=== PATIENT | male | born 1960 | race Caucasian/White ===

== ENCOUNTER 2017-03-22 16:14 | Emergency (ER) | payer OTHER ==
--- NOTE | 2017-03-22 18:00 | DIAGNOSTIC IMAGING REPORT ---
PROCEDURE: XR ANKLE 3 OR 4 VIEWS - LEFT INDICATION: PAIN TECHNIQUE: Four views. COMPARISON: None. FINDINGS: No fracture or dislocation. Normal ankle mortise. Mild degenerative changes of the tibiotalar joint. Soft tissue swelling laterally. IMPRESSION: 1. Soft tissue swelling laterally.
--- NOTE | 2017-03-22 18:08 | DIAGNOSTIC IMAGING REPORT ---
PROCEDURE: US VENOUS - LEFT EXT INDICATION: Left lower extremity edema. TECHNIQUE: Duplex sonography of the deep venous system in the left lower extremity was performed. Compression and augmentation techniques were used. COMPARISON: None. FINDINGS: Normal compression of the greater saphenous, common femoral, superficial femoral, popliteal, peroneal, and posterior tibial veins. Normal augmentation. There is no evidence of superficial or deep venous thrombosis. IMPRESSION: 1. Negative venous ultrasound of the left lower extremity.
--- NOTE | 2017-03-22 19:22 | ED NURSING NOTES ---
Clinical Report - Nurses [address] [place] [address] 03/22/2017 16:18 [id number] TRI[facility] Triage time 16:24. Acuity: LEVEL 3. Chief Complaint: LEFT LOWER EXTREMITY PAIN and SWELLING. Alert. MELISSA COMA SCORE: [place] Coma Scale: 15- eyes open spontaneously (4); best verbal response- oriented x 4 (5); best motor response- obeys commands (6). --16:34 Aileen Holly R.N. 16:24 03/22/17. BP: 131/83. HR: 86. RR: 18. O2 saturation: 94%. Temp: 97.7 F (oral). Pain level now: 710. --16:34 Aileen Holly R.N. Weight: 136 kg stated. Height/Length: 70 inches Per Patient. BMI: 43. --16:27 Aileen Holly R.N. Medications Fenofibrate Oral 134 mg, daily. --16:26 Aileen Holly R.N. Allopurinol Oral (Tablet 300 mg), daily. --16:26 Aileen Holly R.N. Atorvastatin Calcium Oral 20 mg, daily. --16:26 Aileen Holly R.N. Medication/allergy information source: the patient. --16:34 Aileen Holly R.N. Allergies No Known Drug Allergy. --16:26 Aileen Holly R.N. History Arrived by private vehicle. Historian: patient. Accompanied by family. Primary physician ([facility]). No injury occurred. This occurred (pain March 09, today swellingbruising). He has had trouble walking. SOCIAL HX: Never smoker. Occasional alcohol use. No drug use. FALL RISK ASSESSMENT: Fall risk assessment completed. No fall risk identified. FUNCTIONAL ASSESSMENT: Functional assessment: no impairments noted. LEARNING NEEDS ASSESSMENT: The learning needs assessment revealed no barriers. --16:34 Aileen Holly R.N. PROBLEMS: Hypercholesterolemia. Gout. --16:28 Aileen Holly R.N. ADDITIONAL SURGERIES: Shoulder Surgery. Tonsillectomy & Adenoidectomy. --16:28 Aileen Holly R.N. Assessment GENERAL / NEURO / PSYCH: Alert. Oriented X 4. Appears in no acute distress. Patient appears calm and cooperative. RESPIRATORY: Respirations not labored. SKIN: Skin is warm and dry. --16:34 Aileen Holly R.N. Interventions ID band on patient. To treatment room. --16:34 Aileen Holly R.N. PHYSICAL ASSESSMENT 16:38 03/22/17. To room via wheelchair. GENERAL / NEURO / PSYCH: Oriented X 4. Alert. Appears in no acute distress. EXTREMITIES: Left ankle: tenderness and swelling. Left foot: tenderness and swelling. SKIN: Skin is warm and dry. --16:38 Aileen Holly R.N. NURSING PROGRESS NOTES 16:38 03/22/17. Call light placed in reach. Side rails up x 1. Bed placed in lowest position. Brakes of bed on. --16:38 Aileen Holly R.N. 17:30 US done in room. The patient is calm. Overall patient status is the same- he states feels the same. GENERAL / NEURO / PSYCH: Alert. Oriented X 4. RESPIRATORY: No respiratory distress. SKIN: Skin is warm and dry. --19:14 Aileen Holly R.N. 19:15 03/22/17. The patient is calm. Overall patient status is the same- he states feels the same. GENERAL / NEURO / PSYCH: Alert. Oriented X 4. RESPIRATORY: No respiratory distress. SKIN: Skin is warm and dry. --19:15 Aileen Holly R.N. 19:14 03/22/17. BP: 133/74. HR: 78. RR: 18. O2 saturation: 98%. --19:15 Aileen Holly R.N. 19:15 03/22/17. Patient waiting for disposition. --19:15 Aileen Holly R.N. Air lower extremity splint applied to left ankle by solo (1945). --20:03 Pippa Enciso. Locked/Released at 03/23/2017 0:40 by Mary Shah R.N.
--- NOTE | 2017-03-22 19:22 | ED NURSING NOTES ---
Clinical Report - Nurses [address] [place] [address] 03/22/2017 16:18 [id number] Triage time 16:24. Acuity: LEVEL 3. Chief Complaint: LEFT LOWER EXTREMITY PAIN and SWELLING. Alert. MELISSA COMA SCORE: [place] Coma Scale: 15- eyes open spontaneously (4); best verbal response- oriented x 4 (5); best motor response- obeys commands (6). --16:34 Aileen Holly R.N. 16:24 03/22/17. BP: 131/83. HR: 86. RR: 18. O2 saturation: 94%. Temp: 97.7 F (oral). Pain level now: 710. --16:34 Aileen Holly R.N. Weight: 136 kg stated. Height/Length: 70 inches Per Patient. BMI: 43. --16:27 Aileen Holly R.N. Medications Fenofibrate Oral 134 mg, daily. --16:26 Aileen Holly R.N. Allopurinol Oral (Tablet 300 mg), daily. --16:26 Aileen Holly R.N. Atorvastatin Calcium Oral 20 mg, daily. --16:26 Aileen Holly R.N. Medication/allergy information source: the patient. --16:34 Aileen Holly R.N. Allergies No Known Drug Allergy. --16:26 Aileen Holly R.N. History Arrived by private vehicle. Historian: patient. Accompanied by family. Primary physician ([facility]). No injury occurred. This occurred (pain March 09, today swellingbruising). He has had trouble walking. SOCIAL HX: Never smoker. Occasional alcohol use. No drug use. FALL RISK ASSESSMENT: Fall risk assessment completed. No fall risk identified. FUNCTIONAL ASSESSMENT: Functional assessment: no impairments noted. LEARNING NEEDS ASSESSMENT: The learning needs assessment revealed no barriers. --16:34 Aileen Holly R.N. PROBLEMS: Hypercholesterolemia. Gout. --16:28 Aileen Holly R.N. ADDITIONAL SURGERIES: Shoulder Surgery. Tonsillectomy & Adenoidectomy. --16:28 Aileen Holly R.N. Assessment GENERAL / NEURO / PSYCH: Alert. Oriented X 4. Appears in no acute distress. Patient appears calm and cooperative. RESPIRATORY: Respirations not labored. SKIN: Skin is warm and dry. --16:34 Aileen Holly R.N. Interventions ID band on patient. To treatment room. --16:34 Aileen Holly R.N. PHYSICAL ASSESSMENT 16:38 03/22/17. To room via wheelchair. GENERAL / NEURO / PSYCH: Oriented X 4. Alert. Appears in no acute distress. EXTREMITIES: Left ankle: tenderness and swelling. Left foot: tenderness and swelling. SKIN: Skin is warm and dry. --16:38 Aileen Holly R.N. NURSING PROGRESS NOTES 16:38 03/22/17. Call light placed in reach. Side rails up x 1. Bed placed in lowest position. Brakes of bed on. --16:38 Aileen Holly R.N. 17:30 US done in room. The patient is calm. Overall patient status is the same- he states feels the same. GENERAL / NEURO / PSYCH: Alert. Oriented X 4. RESPIRATORY: No respiratory distress. SKIN: Skin is warm and dry. --19:14 Aileen Holly R.N. 19:15 03/22/17. The patient is calm. Overall patient status is the same- he states feels the same. GENERAL / NEURO / PSYCH: Alert. Oriented X 4. RESPIRATORY: No respiratory distress. SKIN: Skin is warm and dry. --19:15 Aileen Holly R.N. 19:14 03/22/17. BP: 133/74. HR: 78. RR: 18. O2 saturation: 98%. --19:15 Aileen Holly R.N. 19:15 03/22/17. Patient waiting for disposition. --19:15 Aileen Holly R.N. Air lower extremity splint applied to left ankle by solo (1945). --20:03 Pippa Enciso. Locked/Released at 03/23/2017 0:40 by Mary Shah R.N.
--- NOTE | 2017-03-22 19:22 | ED CLINICAL REPORT ---
Clinical Report - Physicians/Mid Levels [facility] [address] [place] [address] 03/22/2017 16:18 [id number] Time Seen: 16:26. Arrived- By private vehicle. Historian- patient. Note: Patient has a primary care physician; PCP referred patient for evaluation. HISTORY OF PRESENT ILLNESS Chief Complaint: LOWER EXTREMITY PAIN and SWELLING. Modifying factors- worsened by walking. Relieved by remaining still. Severity is described as being moderate. The quality is noted to be "pain". No radiation. This started about 2 weeks ago and is still present. It was gradual in onset and has been waxing/waning. Symptoms located in the area of the left leg and left ankle. The patient has had swelling, but not had redness. He has had difficulty walking. No bladder dysfunction, bowel dysfunction, sensory loss or motor loss. ( States most pain "over the bone" (lateral malleous). Has been driving in his [employer] today). Patient notes the possibility of an injury. Mechanism of injury- (unknown mechanism). Similar symptoms previously: None. Recent medical care: Not recently seen/assessed. REVIEW OF SYSTEMS No cough, chest pain, difficulty breathing, fever or enlarged lymph nodes. No neck pain, back pain, headache, sore throat or abdominal pain. No vomiting, diarrhea, black stools, difficulty with urination or bloody stools. All systems otherwise negative, except as recorded above. PAST HISTORY See nurses notes. ( PROBLEMS: Hyperlipidemia. Gout. SURGERIES: Shoulder Surgery. Tonsillectomy & Adenoidectomy). Medications: Atorvastatin Calcium Oral 20 mg, daily. Allopurinol Oral (Tablet 300 mg), daily. Fenofibrate Oral 134 mg, daily. Allergies: No Known Drug Allergy. SOCIAL HISTORY Never smoker. Occasional alcohol use. No drug use. Residence: [facility]. ADDITIONAL NOTES The nursing notes have been reviewed. PHYSICAL EXAM Vital Signs: 03/22/2017 16:24 BP: 131/83. HR: 86. RR: 18. O2 saturation: 94%. Temp: 97.7 F. Pain level now: 7/10. Appearance: Alert. Oriented X3. Patient in mild distress. Eyes: Eyes normal inspection. No pale conjunctivae or scleral icterus. ENT: Pharynx normal. The mucous membranes are not dry. No pharyngeal erythema or tonsillar exudate. Neck: Normal inspection. Neck supple. CVS: Normal heart rate and rhythm. Heart sounds normal. Respiratory: No respiratory distress. Breath sounds normal. Abdomen: Soft and nontender. Back: Normal inspection. No tenderness. ROM normal. Skin: Skin intact. No cyanosis. Skin warm and dry. Normal skin color. Normal skin turgor. Skin not cool on palpation. No pallor or diaphoresis. Extremities: Left leg: mild tenderness and swelling located in the anterior, posterior, medial and lateral aspect of upper, mid and lower leg. (most tenderness is over the lateral malleolus). No erythema, laceration, abrasion or deformity. Left ankle: moderate tenderness and swelling localized to the lateral ligaments and malleolus. Neurovascular intact distally. No ligamentous laxity present. No erythema, laceration, abrasion, ecchymosis or puncture wound. No deformity. No limitation in ROM. Extremities otherwise negative. Neuro: Oriented X 3. No motor deficit. LABS, X-RAYS, AND EKG Lt Ankle X-ray: No fracture. Normal alignment. No bony lesion, air in the soft tissue or foreign body. Soft tissues normal. Joint spaces normal. Views: AP, lateral, mortise and oblique. Technique: good. The X-rays were interpreted contemporaneously by me. Lower Extremity Sonography: Negative exam. Indication for study: extremity pain and swelling; suspected deep venous thrombosis in the left lower extremity. The study was discussed with the radiologist (via PACS note). Laboratory Tests: CBC w Diff: (SEFERINO: 03/22/2017 16:54) ( MsgRcvd 03/22/2017 17:19) Final results Test Result Flag Units (Reference) WHITE BLOOD COUNT 9.9 K/uL (4.5-11.5) RED BLOOD COUNT 4.86 M/uL (4.50-5.90) HEMOGLOBIN 13.9 gm/dL (13.5-17.5) HEMATOCRIT 41.0 % (41.0-53.0) MEAN CELL VOLUME 84 fL (80-100) MEAN CORPUSCULAR HGB 29 pg (26-34) MEAN CORPUSCULAR HGB CONC 34 g/dL (31-37) RED CELL DISTRIBUTION WIDTH 13.8 % (11.6-14.8) PLATELET COUNT 264 K/uL (150-400) NEUTROPHIL % 69.2 % (50-75) LYMPH % 19.2 L % (25-40) MONO % 10.4 % (3-14) EOSINOPHIL % 0.9 % (0-4) BASOPHIL % 0.3 % (0-2) [id number]: (SEFERINO: 03/22/2017 16:54) ( MsgRcvd 03/22/2017 18:18) Final results Test Result Flag Units (Reference) D-DIMER QUANTITATIVE 0.28 ug/mLFEU (0.27-0.52) The primary value of this quantitative assay relates toits negative predictive value (i.e. exclusion) of pulmonaryembolism/deep vein thrombosis/DIC.Elevated levels of d-dimer may also occur with:, age, cancer, inflammation, liver disease,post-op, infection, hematoma, coronary disease, peripheralarteriopathy, bleeding disorders and thrombolytic treatment.Results should be correlated with other clinical andradiological data.Testing Methodology: Latex Immunoassay BMP: (SEFERINO: 03/22/2017 16:54) ( MsgRcvd 03/22/2017 17:11) Final results Test Result Flag Units (Reference) GLUCOSE 93 mg/dL (70-110) BUN 22 H mg/dL (7-18) CREATININE 1.3 mg/dL (0.6-1.3) Estimated GFR >60 mL/min Estimated GFR- >60 mL/min Note: Persistent reduction over 3 months in eGFR<60 mL/min/1.73 m2 defines CKD. Patients with eGFR values>=60 mL/min/1.73 m2 may also have CKD if evidence ofpersistent proteinuria. Additional information may be foundat www.kidney.org. SODIUM 144 mmol/L (136-145) POTASSIUM 3.9 mmol/L (3.5-5.1) CHLORIDE 107 mmol/L (98-107) CARBON DIOXIDE 27 mmol/L (21-32) CALCIUM 9.1 mg/dL (8.5-10.1) Uric Acid: (SEFERINO: 03/22/2017 16:54) ( MsgRcvd 03/22/2017 17:14) Final results Test Result Flag Units (Reference) URIC ACID 6.3 mg/dL (2.6-7.2) . Pulse Oximetry: 03/22/2017 19:14 O2 saturation: 98%. (FIO2 - room air). Interpretation: normal. PROGRESS AND PROCEDURES PROCEDURES (JOSE ANGEL wrap and crutches given). Course of Care: 18:54 03/22/17. Still awaiting US results 19:20 03/22/17. US is neg 03/22/2017 19:14 BP: 133/74. HR: 78. RR: 18. O2 saturation: 98%. Patient/family counseled. Disposition: Discharged. Condition: stable and improved. CLINICAL IMPRESSION Sprain of the calcaneofibular and talofibular ligament of the left ankle. INSTRUCTIONS Apply ice. Use crutches until released. Elevate affected areas above chest level. Do not work for two days. Rest. Warnings: Further evaluation is necessary in order to recheck abnormal lab, obtain test results and conduct further tests. It is very important to follow up with a physician. GENERAL WARNINGS: Return or contact your physician immediately if your condition worsens or changes unexpectedly, if not improving as expected, or if other problems arise. Your Current Medications: CONTINUE TAKING THE FOLLOWING MEDICATIONS: Allopurinol Oral : Tablet 300 mg, daily. Atorvastatin Calcium Oral : 20 mg daily. Fenofibrate Oral : 134 mg daily. OTC Medications: Acetaminophen (available over the counter): take according to label instructions. Motrin (available over the counter): take according to label instructions. Follow-up: Follow up with your doctor in about two days. (Electronically signed by José Miguel Manriquez DO 03/22/2017 21:42)
--- NOTE | 2017-03-22 19:22 | ED ORDER SUMMARY ---
..... Patient: JAZMIN FATIMA OrderSheet [facility] VisitID: [id number] [address] [place] [address] 56y, M Registration Date/Time: 03/22/2017 ORDER SHEET Weight: 136.0 kg (stated) Allergies: No Known Drug Allergy GENERAL ORDERS: US Venous Left Urgent (16:34 03/22/2017 PHneXG Sciencesson DO) (Ack 16:43 LNations ER Tech1) (17:43 Pierre R.N.) CBC w Diff Urgent (16:34 03/22/2017 PHneXG Sciencesson DO) (Ack 16:43 LNations ER Tech1) (17:42 Pierre R.N.) Uric Acid Urgent (16:34 03/22/2017 [facility] (Ack 16:43 LNations ER Tech1) (17:42 Pierre R.N.) Ankle 3 or 4V Left Urgent (16:41 03/22/2017 [facility] Hoops [facility]) (Ack 16:43 LNations ER Tech1) (16:51 Pierre R.N.) BMP Urgent (16:44 03/22/2017 PHneXG Sciencesson DO) (Ack 16:44 LNations ER Tech1) (17:42 Pierre R.N.) D-Dimer Urgent (17:38 03/22/2017 [facility]) (17:42 Pierre R.N.) Splint (LE) (Left) (Air Splint) (19:21 03/22/2017 [facility] DO) (20:05 CBradburn R.N.) Crutches (19:21 03/22/2017 [facility]) (20:05 CBradburn R.N.) MEDICATION ORDERS: IV FLUIDS: ORDER SHEET NOTES: [Electronically signed by José Miguel Manriquez DO (21:42 03/22/2017)] [Electronically signed by Mary Shah R.N. (00:40 03/23/2017)] [Electronically locked/signed by Mary Shah R.N. (00:40 03/23/2017)]
--- NOTE | 2017-03-22 19:22 | ED ORDER SUMMARY ---
..... Patient: JAZMIN FATIMA OrderSheet [facility] VisitID: [id number] [address] [place] [address] 56y, M Registration Date/Time: 03/22/2017 ORDER SHEET Weight: 136.0 kg (stated) Allergies: No Known Drug Allergy GENERAL ORDERS: US Venous Left Urgent (16:34 03/22/2017 PHsdRevelationson DO) (Ack 16:43 LNations ER Tech1) (17:43 Pierre R.N.) CBC w Diff Urgent (16:34 03/22/2017 PHsdRevelationson DO) (Ack 16:43 LNations ER Tech1) (17:42 Pierre R.N.) Uric Acid Urgent (16:34 03/22/2017 [facility] (Ack 16:43 LNations ER Tech1) (17:42 Pierre R.N.) Ankle 3 or 4V Left Urgent (16:41 03/22/2017 [facility] (Ack 16:43 LNations ER Tech1) (16:51 Pierre R.N.) BMP Urgent (16:44 03/22/2017 [facility]sd[facility]velations[facility] DO) (Ack 16:44 LNations ER Tech1) (17:42 Pierre R.N.) D-Dimer Urgent (17:38 03/22/2017 [facility]) (17:42 Pierre R.N.) Splint (LE) (Left) (Air Splint) (19:21 03/22/2017 [facility] DO) (20:05 CBradburn R.N.) Crutches (19:21 03/22/2017 [facility]) (20:05 CBradburn R.N.) MEDICATION ORDERS: IV FLUIDS: ORDER SHEET NOTES: [Electronically signed by José Miguel Manriqeuz DO (21:42 03/22/2017)] [Electronically signed by Mary Shah R.N. (00:40 03/23/2017)] [Electronically locked/signed by Mary Shah R.N. (00:40 03/23/2017)]
--- NOTE | 2017-03-23 00:40 | ED MED RECONCILIATION SUMMARY ---
Patient: JAZMIN FATIMA Medication Reconciliation Report [facility] VisitID: [id number] [address] [place] [address] 56y, M Registration Date/Time: 03/22/2017 Weight: 136.0 kg Height/Length: 70 in. BMI: 43.0 ALLERGIES: No Known Drug Allergy The patient's Home Medications are listed below: CONTINUE TAKING THE FOLLOWING MEDICATIONS: Allopurinol Oral (300 mg), daily Atorvastatin Calcium Oral 20 mg, daily Fenofibrate Oral 134 mg, daily The source(s) of the original Home Medication information: patient The following Medications were given to the patient in the Emergency Department: None. The following Medications were prescribed to the patient: Acetaminophen (available over the counter): take according to label instructions. -- José Miguel Manriquez DO Motrin (available over the counter): take according to label instructions. -- José Miguel Manriquez DO
--- NOTE | 2017-03-23 00:40 | ED MED RECONCILIATION SUMMARY ---
Patient: JAZMIN FATIMA Medication Reconciliation Report [facility] VisitID: [id number] [address] [place] [address] 56y, M Registration Date/Time: 03/22/2017 Weight: 136.0 kg Height/Length: 70 in. BMI: 43.0 ALLERGIES: No Known Drug Allergy The patient's Home Medications are listed below: CONTINUE TAKING THE FOLLOWING MEDICATIONS: Allopurinol Oral (300 mg), daily Atorvastatin Calcium Oral 20 mg, daily Fenofibrate Oral 134 mg, daily The source(s) of the original Home Medication information: patient The following Medications were given to the patient in the Emergency Department: None. The following Medications were prescribed to the patient: Acetaminophen (available over the counter): take according to label instructions. -- José Miguel Manriquez DO Motrin (available over the counter): take according to label instructions. -- José Miguel Manriquez DO
--- NOTE | 2017-03-23 00:40 | ED MAR SUMMARY ---
..... Medication Administration Record [facility] [address] [place] [address] Patient: JAZMIN FATIMA Visit ID: [id number] 56y, M Weight: 136.0 kg Height/Length: 70 in BMI: 43 ALLERGIES: No Known Drug Allergy
--- NOTE | 2017-03-23 00:40 | ED MAR SUMMARY ---
..... Medication Administration Record [facility] [address] [place] [address] Patient: JAZMIN FATIMA Visit ID: [id number] 56y, M Weight: 136.0 kg Height/Length: 70 in BMI: 43 ALLERGIES: No Known Drug Allergy
--- NOTE | 2017-03-23 00:40 | ED DISCHARGE INSTRUCTIONS ---
Patient: JAZMIN FATIMA General Instructions [facility] VisitID: [id number] [place] [address] 56y, M Registration Date/Time: 03/22/2017 Sprain of the calcaneofibular and talofibular ligament of the left ankle. INSTRUCTIONS Apply ice. Use crutches until released. Elevate affected areas above chest level. Do not work for two days. Rest. Warnings: Further evaluation is necessary in order to recheck abnormal lab, obtain test results and conduct further tests. It is very important to follow up with a physician. GENERAL WARNINGS: Return or contact your physician immediately if your condition worsens or changes unexpectedly, if not improving as expected, or if other problems arise. Your Current Medications: CONTINUE TAKING THE FOLLOWING MEDICATIONS: Allopurinol Oral : Tablet 300 mg, daily. Atorvastatin Calcium Oral : 20 mg daily. Fenofibrate Oral : 134 mg daily. OTC Medications: Acetaminophen (available over the counter): take according to label instructions. Motrin (available over the counter): take according to label instructions. Follow-up: Follow up with your doctor in about two days. ADDITIONAL INFORMATION Sprain, Ankle,With X-Ray A sprain is an injury to the ligaments or capsule that holds a joint together. There are no broken bones. Most sprains take from four to six weeks to heal. If the ligament is completely torn (severe sprain), it can take several months to recover. Mild to moderate sprains may be treated with an elastic wrap or an in-shoe splint to provide support and prevent re-injury. A mild sprain may not require any additional support. A severe sprain may require surgery to repair. Home care The following guidelines will help you care for your injury at home: Stay off the injured leg as much as possible until you can walk on it without pain. If you have a lot of pain with walking, crutches or a walker may be prescribed. (These can be rented or purchased at many pharmacies and surgical or orthopedic supply stores). Follow your doctor's advice regarding when to begin bearing weight on that leg. Keep your leg elevated to reduce pain and swelling. When sleeping, place a pillow under the injured leg. When sitting, support the injured leg so it is level with your waist. This is very important during the first 48 hours. Apply an ice pack (ice cubes in a plastic bag, wrapped in a towel) over the injured area for 20 minutes every 12 hours the first day. You can place the ice pack directly over the splint/cast. If you were given a boot, open it to apply the ice pack. Continue with ice packs 34 times a day for the next two days, then as needed for the relief of pain and swelling. You may use acetaminophen or ibuprofen to control pain, unless another pain medicine was prescribed. If you have chronic liver or kidney disease or ever had a stomach ulcer or GI bleeding, talk with your doctor before using these medicines. You may return to sports after healing, when you can run without pain. A sprained ankle is at risk for re-injury during the first six weeks. During that time, protect your ankle with an in-shoe splint that prevents tilting of your ankle from side to side. This is very important if you do active work or play sports during that time. Follow-up care Any X-rays you had today dont show any broken bones, breaks, or fractures. Sometimes fractures dont show up on the first X-ray. Bruises and sprains can sometimes hurt as much as a fracture. These injuries can take time to heal completely. If your symptoms dont improve or they get worse, talk with your doctor. You may need a repeat X-ray. When to seek medical care Get prompt medical attention if any of the following occur: The plaster cast or splint gets wet or soft The fiberglass cast or splint gets wet and does not dry for 24 hours Pain or swelling increases, or redness appears Toes become cold, blue, numb or tingly Re-injure your ankle Crutch Walking Crutch Adjustment Make sure the crutches you use are adjusted to fit you. When you stand, there should be room to fit 2-3 fingers between the top of the crutch and your armpit. Your elbow should be slightly bent when holding the hand vamp throater. Crutch Walking: Place the crutches forward 12" in front of and 6" to the side of your feet. Lean your weight forward as you push down on the handgrips. Your weight should be on your hands and yourstrong leg, not your armpits . Let your body swing through, landing on the strong leg. Advance the crutches forward again. The crutch and the injured leg should move together. Going Up Steps: ("Up with the good") With both crutches on the same step as your feet, push down on the handgrips. Balancing with very light pressure on the weak leg, let your hands support your weight as you raise your strong leg onto the next higher step. Transfer all your weight to your strong leg (still bent) as you move the crutches up to the next step alongside the strong leg. With your weight evenly balanced on the two crutches and your strong leg, straighten your strong knee as you raise the weak leg up to the next step. Going Down Steps: ("Down with the bad") With both crutches on the same step as your feet, push down on the handgrips. With your weight evenly balanced on the two crutches and your strong leg, bend your strong knee as you lower the weak leg down to the next step. Let your strong leg support you (still bent) as you move the crutches down alongside the weak leg. Transfer your weight to your hands, balancing with very light pressure on the weak leg as you lower your strong leg alongside your weak leg. Acetaminophen Oral tablet What is this medicine? ACETAMINOPHEN (a set a FELICITY charles fen) is a pain reliever. It is used to treat mild pain and fever. How should I use this medicine? Take this medicine by mouth with a glass of water. Follow the directions on the package or prescription label. Take your medicine at regular intervals. Do not take your medicine more often than directed. Talk to your public health administrator regarding the use of this medicine in children. While this drug may be prescribed for children as young as 6 years of age for selected conditions, precautions do apply. What side effects may I notice from receiving this medicine? Side effects that you should report to your doctor or health chronic care nurse as soon as possible: allergic reactions like skin rash, itching or hives, swelling of the face, lips, or tongue breathing problems fever or sore throat redness, blistering, peeling or loosening of the skin, including inside the mouth trouble passing urine or change in the amount of urine unusual bleeding or bruising unusually weak or tired yellowing of the eyes or skin Side effects that usually do not require medical attention (report to your doctor or health chronic care nurse if they continue or are bothersome): headache nausea, stomach upset What may interact with this medicine? alcohol imatinib isoniazid other medicines with acetaminophen What if I miss a dose? If you miss a dose, take it as soon as you can. If it is almost time for your next dose, take only that dose. Do not take double or extra doses. Where should I keep my medicine? Keep out of reach of children. Store at room temperature between 20 and 25 degrees C (68 and 77 degrees F). Protect from moisture and heat. Throw away any unused medicine after the expiration date. What should I tell my health care provider before I take this medicine? They need to know if you have any of these conditions: if you frequently drink alcohol containing drinks liver disease an unusual or allergic reaction to acetaminophen, other medicines, foods, dyes or preservatives or trying to get breast-feeding What should I watch for while using this medicine? Tell your doctor or health chronic care nurse if the pain lasts more than 10 days (5 days for children), if it gets worse, or if there is a new or different kind of pain. Also, check with your doctor if a fever lasts for more than 3 days. Do not take other medicines that contain acetaminophen with this medicine. Always read labels carefully. If you have questions, ask your doctor or pharmacist. If you take too much acetaminophen get medical help right away. Too much acetaminophen can be very dangerous and cause liver damage. Even if you do not have symptoms, it is important to get help right away. Ibuprofen Oral tablet What is this medicine? IBUPROFEN (eye BYOO proe fen) is a non-steroidal anti-inflammatory drug (NSAID). It is used for dental pain, fever, headaches or migraines, osteoarthritis, rheumatoid arthritis, or painful monthly periods. It can also relieve minor aches and pains caused by a cold, flu, or sore throat. How should I use this medicine? Take this medicine by mouth with a glass of water. Follow the directions on the prescription label. Take this medicine with food if your stomach gets upset. Try to not lie down for at least 10 minutes after you take the medicine. Take your medicine at regular intervals. Do not take your medicine more often than directed. A special MedGuide will be given to you by the pharmacist with each prescription and refill. Be sure to read this information carefully each time. Talk to your public health administrator regarding the use of this medicine in children. Special care may be needed. What side effects may I notice from receiving this medicine? Side effects that you should report to your doctor or health chronic care nurse as soon as possible: allergic reactions like skin rash, itching or hives, swelling of the face, lips, or tongue black or bloody stools, blood in the urine or in vomit breathing problems changes in vision chest pain general ill feeling or flu-like symptoms nausea or vomiting redness, blistering, peeling or loosening of the skin, including inside the mouth slurred speech or weakness on one side of the body stomach pain unexplained weight gain or swelling unusually weak or tired yellowing of eyes or skin Side effects that usually do not require medical attention (report to your doctor or health chronic care nurse if they continue or are bothersome): constipation or diarrhea dizziness gas or heartburn stomach upset What may interact with this medicine? Do not take this medicine with any of the following medications: cidofovir ketorolac methotrexate pemetrexed This medicine may also interact with the following medications: alcohol aspirin diuretics lithium other drugs for inflammation like prednisone warfarin What if I miss a dose? If you miss a dose, take it as soon as you can. If it is almost time for your next dose, take only that dose. Do not take double or extra doses. Where should I keep my medicine? Keep out of the reach of children. Store at room temperature between 15 and 30 degrees C (59 and 86 degrees F). Keep container tightly closed. Throw away any unused medicine after the expiration date. What should I tell my health care provider before I take this medicine? They need to know if you have any of these conditions: asthma cigarette smoker drink more than 3 alcohol containing drinks a day heart disease or circulation problems such as heart failure or leg edema (fluid retention) high blood pressure kidney disease liver disease stomach bleeding or ulcers an unusual or allergic reaction to ibuprofen, aspirin, other NSAIDS, other medicines, foods, dyes, or preservatives or trying to get breast-feeding What should I watch for while using this medicine? Tell your doctor or healthcare professional if your symptoms do not start to get better or if they get worse. This medicine does not prevent heart attack or stroke. In fact, this medicine may increase the chance of a heart attack or stroke. The chance may increase with longer use of this medicine and in people who have heart disease. If you take aspirin to prevent heart attack or stroke, talk with your doctor or health chronic care nurse. Do not take other medicines that contain aspirin, ibuprofen, or naproxen with this medicine. Side effects such as stomach upset, nausea, or ulcers may be more likely to occur. Many medicines available without a prescription should not be taken with this medicine. This medicine can cause ulcers and bleeding in the stomach and intestines at any time during treatment. Ulcers and bleeding can happen without warning symptoms and can cause . To reduce your risk, do not smoke cigarettes or drink alcohol while you are taking this medicine. You may get drowsy or dizzy. Do not drive, use machinery, or do anything that needs mental alertness until you know how this medicine affects you. Do not stand or sit up quickly, especially if you are an older patient. This reduces the risk of dizzy or fainting spells. This medicine can cause you to bleed more easily. Try to avoid damage to your teeth and gums when you brush or floss your teeth. You have been given the following additional information: Sprain, Ankle, With X-Ray Crutch Walking Acetaminophen Oral tablet Ibuprofen Oral tablet Do not work for two days. Rest. (Electronically signed by José Miguel Manriquez DO 03/22/2017 21:42)
== END 2017-03-22 20:20 | disposition home or self-care (01) ==
LOC: ED SRH 16:14
DX: S93.412A Sprain of calcaneofibular ligament of left ankle, initial encounter (principal); S93.492A Sprain of other ligament of left ankle, initial encounter; X58.XXXA Exposure to other specified factors, initial encounter; Y93.9 Activity, unspecified; Y92.9 Unspecified place or not applicable; Y99.9 Unspecified external cause status; Z79.899 Other long term (current) drug therapy